=== PATIENT | female | born 1975 | race Caucasian/White ===

== ENCOUNTER 2018-08-06 12:00 | Emergency (ER) | payer OTHER ==
[~2018-08-06] VITALS: Ht 157.5 cm; Wt 52.2 kg
[2018-08-06] MEDS ORDERED: LACTATED RINGERS 1,000 ML IV ONE (12:23)
[2018-08-06] MEDS ORDERED: ONDANSETRON 4 MG/2 ML (SDV) Z0FRAN IV PRN (12:30)
[2018-08-06] MEDS ORDERED: PIPERACILLIN SODIUM/TAZOBACTAM 4.5 GM in NS (IVPB) 100 ML IV ONE (12:30)
[2018-08-06] MEDS ORDERED: fentaNYL INJECTION 100 MCG/2 ML AMP IVP ONE (12:30)
--- NOTE | 2018-08-06 12:30 | ED EENT ---
History of Present Illness General Chief Complaint: Dental Problems/Pain Stated Complaint: TOOTH ABSCESS Source: patient, family (mom) Exam Limitations: no limitations History of Present Illness Date Seen by Provider: Aug 06, 2018 Time Seen by Provider: 12:05 Initial Comments Patient presents to ER by private conveyance with her mother and chief complaint that she's had for the past 5 days some pain and swelling consistent with a tooth abscess over her left upper eye tooth. She's having worsening pain with cold liquids. Air does not bother it. She has a filling in that tooth. She made an appointment with a dentist for the and he put her on amoxicillin for 10 days. She started the amoxicillin yesterday but does not feel that this helped much and today she had some nausea vomiting. She had a temperature yesterday of 99. She has an active brain cancer status post surgery from 2 years ago. She is not on chemotherapy at this time. No radiation therapy. She still having some nausea now. She's having no shortness of breath cough palpitations or chest pain. 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 She's been taking her medications routinely. After she took her amoxicillin and pain pill this morning however she vomited immediately back up. She said when she took a Lortab she got from the walk-in clinic yesterday and it did help marginally with the pain in her face. She's had no discharge from her nose or epistaxis. Allergies and Home Medications Allergies Coded Allergies: No Known Drug Allergies (Unverified , 08/06/18) Patient Home Medication List Home Medication List Reviewed: Yes Review of Systems Review of Systems Constitutional: chills, fever, malaise Eyes: Denies Blindness, Denies Blurred Vision, Denies Drainage Ears: Denies Dizziness, Denies Pain Nose: denies congestion, denies epistaxis Mouth: see HPI, pain, swelling; denies purulent discharge, denies serosanguinous discharge Throat: denies neck stiffness, denies hoarse, denies painful swallowing, denies difficulty with fluids Respiratory: No cough, No short of breath Cardiovascular: No chest pain, No edema Gastrointestinal: No abdominal pain, No constipation, No diarrhea Musculoskeletal: No back pain, No joint pain Past Qbqwjds-Wqlctc-Yzjsom Hx Patient Social History Alcohol Use: Occasionally Uses Recreational Drug Use: No Smoking Status: Never a Smoker Physical Exam Vital Signs Vital Signs - First Documented 08/06/18 12:05 Temp 97.8 Pulse 113 Resp 16 B/P (MAP) 117/88 (98) Pulse Ox 97 O2 Delivery Room Air Height, Weight, BMI Height: '" Weight: lbs. oz. kg; BMI Method: General Appearance: WD/WN, mild distress Eyes: bilateral eye normal inspection, bilateral eye PERRL, bilateral eye EOMI Ears: bilateral ear auricle normal, bilateral ear canal normal, bilateral ear TM normal Nose: normal inspection; No active bleeding, No discharge Mouth/Throat: normal mouth inspection, other (there are some fillings in her eye tooth in question on the left upper maxilla but no swelling of the gingiva, obvious abscess drainage or erythema. Mildly tender to palpation. 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, alert, normal mood/affect, oriented x 3 Progress/Results/Core Measures Results/Orders Lab Results Laboratory Tests Test 08/06/18 12:25 08/06/18 12:52 Range/Units White Blood Count 9.2 4.3-11.0 10^3/uL Red Blood Count 4.28 L 4.35-5.85 10^6/uL Hemoglobin 13.1 11.5-16.0 G/DL Hematocrit 39 35-52 % Mean Corpuscular Volume 92 80-99 FL Mean Corpuscular Hemoglobin 31 25-34 PG Mean Corpuscular Hemoglobin Concent 33 32-36 G/DL Red Cell Distribution Width 13.0 10.0-14.5 % Platelet Count 255 130-400 10^3/uL Mean Platelet Volume 10.9 H 7.4-10.4 FL Neutrophils (%) (Auto) 81 H 42-75 % Lymphocytes (%) (Auto) 10 L 12-44 % Monocytes (%) (Auto) 8 0-12 % Eosinophils (%) (Auto) 1 0-10 % Basophils (%) (Auto) 0 0-10 % Neutrophils # (Auto) 7.5 1.8-7.8 X 10^3 Lymphocytes # (Auto) 0.9 L 1.0-4.0 X 10^3 Monocytes # (Auto) 0.7 0.0-1.0 X 10^3 Eosinophils # (Auto) 0.1 0.0-0.3 10^3/uL Basophils # (Auto) 0.0 0.0-0.1 10^3/uL Prothrombin Time 15.1 H 12.2-14.7 SEC INR Comment 1.2 0.8-1.4 Activated Partial Thromboplast Time 29 24-35 SEC Sodium Level 140 135-145 MMOL/L Potassium Level 3.9 3.6-5.0 MMOL/L Chloride Level 105 98-107 MMOL/L Carbon Dioxide Level 24 21-32 MMOL/L Anion Gap 11 5-14 MMOL/L Blood Urea Nitrogen 12 7-18 MG/DL Creatinine 0.85 0.60-1.30 MG/DL Estimat Glomerular Filtration Rate > 60 BUN/Creatinine Ratio 14 Glucose Level 101 70-105 MG/DL Calcium Level 9.3 8.5-10.1 MG/DL Corrected Calcium 8.5-10.1 MG/DL Total Bilirubin 0.7 0.1-1.0 MG/DL Aspartate Amino Transf (AST/SGOT) 108 H 5-34 U/L Alanine Aminotransferase (ALT/SGPT) 131 H 0-55 U/L Alkaline Phosphatase 67 40-136 U/L Total Protein 7.7 6.4-8.2 GM/DL Albumin 4.6 H 3.2-4.5 GM/DL Serum Test, Qualitative NEGATIVE NEGATIVE Lactic Acid Level 0.80 0.50-2.00 MMOL/L My Orders Orders - AME PARMAR Cbc With Automated Diff (08/06/18 12:23) Comprehensive Metabolic Panel (08/06/18 12:23) Blood Culture (08/06/18 12:23) Protime With Inr (08/06/18 12:23) Partial Thromboplastin Time (08/06/18 12:23) Saline Lock/Iv-Start (08/06/18 12:23) Ondansetron Injection (Zofran Injectio (08/06/18 12:30) Lactic Acid Analyzer (08/06/18 12:23) Lactated Ringers (Lr 1000 Ml Iv Solution (08/06/18 12:23) Piperacillin Sodium/Tazobactam (Zosyn Vi (08/06/18 12:30) Fentanyl Injection (Sublimaze Injection (08/06/18 12:30) Ct Neck (Soft Tissue) W (08/06/18 12:30) Iohexol Injection (Omnipaque 350 Mg/Ml 1 (08/06/18 12:45) Contrast Received (Contrast Received) (08/06/18 12:45) Ns (Ivpb) (Sodium Chloride 0.9% Ivpb Bag (08/06/18 12:45) Hcg,Qualitative Serum (08/06/18 12:58) Medications Given in ED Current Medications Medications Dose Ordered Sig/Michell Route Start Time Stop Time Status Last Admin Dose Admin Fentanyl Citrate 75 mcg ONCE ONCE IVP 08/06/18 12:30 08/06/18 12:31 DC 08/06/18 12:36 75 MCG Iohexol 100 ml ONCE ONCE IV 08/06/18 12:45 08/06/18 13:15 DC 08/06/18 13:00 75 ML Lactated Ringer's 1,000 ml @ 0 mls/hr Q0M ONCE IV 08/06/18 12:23 08/06/18 12:29 DC 08/06/18 12:36 1,000 MLS/HR Ondansetron HCl 4 mg PRN PRN IV 08/06/18 12:30 08/06/18 12:37 DC 08/06/18 12:36 4 MG Piperacillin Sod/ Tazobactam Sod 4.5 gm/Sodium Chloride 100 ml @ 200 mls/hr ONCE ONCE IV 08/06/18 12:30 08/06/18 13:15 DC 08/06/18 13:26 200 MLS/HR Vital Signs/I&O 08/06/18 12:05 Temp 97.8 Pulse 113 Resp 16 B/P (MAP) 117/88 (98) Pulse Ox 97 O2 Delivery Room Air Progress Progress Note : Time: 12:37 Progress Note She is not immunocompromised with chemotherapy. Her facial swelling concerns me for more occult abscess or even possibly sinus infection. Plan to do a CT of the soft tissues of the neck which will include maxillofacial. To 75 g of fentanyl since she's not entirely abisai to opiate pain medicines and 4 mg Zofran for her nausea. She is tachycardic with a heart rate of 120 on arrival but afebrile so we'll just initiate a septic workup with fluids and choose Zosyn to cover anaerobes. If we don't find her to be in sepsis however we can be escalate. If she is thin and probably recommend IV antibiotics and inpatient stay. She has appropriate dental follow-up. Diagnostic Imaging Diagonstic Imaging: CT (with contrast) Plain Films/CT/US/NM/MRI: other (maxillofacial soft tissue neck) Comments [facility], [place] NAME: [facility] REC#: [id number] PT STATUS: REG ER : 1975 PHYSICIAN: AME PARMAR MD ADMIT DATE: 08/06/18/ER Draft Date of Exam:08/06/18 CT NECK (SOFT TISSUE) W PROCEDURE: CT neck soft tissue with contrast. TECHNIQUE: Multiple contiguous axial images were obtained through the neck after the administration of contrast. INDICATION: Left facial pain and swelling. COMPARISON: None. FINDINGS: Inflammatory stranding and enhancement within the soft tissues overlying the left mandible and maxilla. There is a periapical lucency about the left maxillary canine. There is a peripherally enhancing fluid collection consistent with an abscess measuring approximately 1.4 x 0.5 cm directly adjacent to periapical lucency. No cervical lymphadenopathy. This mass is identified in the neck. The thyroid and major salivary glands are unremarkable. The cervical, carotid and vertebral arteries are grossly patent. Normal floor of the mouth, tongue base and epiglottis. No acute findings in the cervical spine. The visualized intracranial contents, skull base, paranasal sinuses and mastoids are negative. IMPRESSION: 1. Periapical lucency and adjacent peripheral enhancing fluid collection consistent with an abscess about the left maxillary canine. There is moderate adjacent inflammatory stranding and enhancement. 2. No other acute CT findings in the neck. Dictated on workstation # [id number] Dict: 08/06/18 1321 Trans: 08/06/18 1340 [facility] [id number] Interpreted by: ALEE DON MD Electronically signed by: Reviewed: Reviewed by Me Departure Impression Primary Impression: Dental abscess Disposition: HOME, SELF-CARE Condition: Improved Departure-Patient Inst. Decision time for Depature: 14:46 Referrals: JEFE STUBBS (PCP) Primary Care Physician Patient Instructions: Tooth Abscess (DC) Add. Discharge Instructions: Continue to take the Augmentin as prescribed. You may also take one capsule of probiotics twice a day to prevent the potential diarrhea associated with all antibiotics. For pain relief you can use 650 mg of Tylenol every 8 hours in addition to 800 mg ibuprofen every 8 hours. You can also put a hot compress or hot water bottle on your cheek for pain relief. If you have breakthrough pain you can use the Percocet 1/2-2 tablets every 6 hours as needed to control your pain. Percocet will cause drowsiness and so you should not operate machinery or drive. Do not mix with alcohol. Percocet will cause constipation and therefore should be taken with at least one dose of MiraLAX daily every day that you use the pain medicine. Keep your follow-up appointment with the dentist. Drink plenty of fluids. Scripts Oxycodone HCl/Acetaminophen (Percocet 10-325 mg Tablet) 1 Each Tablet 1-2 EACH PO Q6H PRN for PAIN-MODERATE MDD 3 for 7 Days, #25 TAB 0 Refills Prov: AME PARMAR 08/06/18 Work/School Note: Work Release Form Date Seen in the Emergency Department: Aug 06, 2018 Return to Work: Aug 07, 2018 Restrictions: No Restrictions AME PARMAR Aug 06, 2018 12:30
[2018-08-06 12:34] LABS: BASOPHILS % (AUTO) 0 % (0-10); EOSINOPHILS # (AUTO) 0.1 10^3/uL (0.0-0.3); EOSINOPHILS % (AUTO) 1 % (0-10); HEMATOCRIT 39 % (35-52); HEMOGLOBIN 13.1 G/DL (11.5-16.0); LYMPHOCYTES # (AUTO) 0.9 X 10^3 (1.0-4.0); LYMPHOCYTES % (AUTO) 10 % (12-44); MEAN CORPUSCULAR HEMOGLOBIN 31 PG (25-34); MEAN CORPUSCULAR HGB CONC 33 G/DL (32-36); MEAN CORPUSCULAR VOLUME 92 FL (80-99); MEAN PLATELET VOLUME 10.9 FL (7.4-10.4); MONOCYTES # (AUTO) 0.7 X 10^3 (0.0-1.0); MONOCYTES % (AUTO) 8 % (0-12); NEUTROPHILS # (AUTO) 7.5 X 10^3 (1.8-7.8); NEUTROPHILS % (AUTO) 81 % (42-75); PLATELET COUNT 255 10^3/uL (130-400); RED BLOOD COUNT 4.28 10^6/uL (4.35-5.85); WHITE BLOOD COUNT 9.2 10^3/uL (4.3-11.0)
[2018-08-06] MEDS ORDERED: NS 100 ML (IVPB) BAG IV ONE (12:45)
[2018-08-06] MEDS ORDERED: RECEIVED CONTRAST (Hold Metformin) IV SCH (12:45)
[2018-08-06] MEDS ORDERED: IOHEXOL 350 MG/ML 100 ML (OMNIPAQUE 350) VIAL IV ONE (12:45)
[2018-08-06 12:57] LABS: INR 1.2 (0.8-1.4); PROTHROMBIN TIME PATIENT 15.1 SEC (12.2-14.7)
[2018-08-06 13:00] LABS: ALANINE AMINOTRANSFERASE 131 U/L (0-55); ALBUMIN 4.6 GM/DL (3.2-4.5); ALKALINE PHOSPHATASE 67 U/L (40-136); BILIRUBIN,TOTAL 0.7 MG/DL (0.1-1.0); BUN/CREATININE RATIO 14; CALCIUM 9.3 MG/DL (8.5-10.1); CARBON DIOXIDE 24 MMOL/L (21-32); CHLORIDE 105 MMOL/L (98-107); CREATININE SERUM 0.85 MG/DL (0.60-1.30); GFR ESTIMATED > 60; GLUCOSE 101 MG/DL (70-105); POTASSIUM 3.9 MMOL/L (3.6-5.0); SODIUM 140 MMOL/L (135-145); TOTAL PROTEIN 7.7 GM/DL (6.4-8.2)
--- NOTE | 2018-08-06 13:40 | Diagnostic Imaging Report ---
PROCEDURE: CT neck soft tissue with contrast. TECHNIQUE: Multiple contiguous axial images were obtained through the neck after the administration of contrast. INDICATION: Left facial pain and swelling. COMPARISON: None. FINDINGS: Inflammatory stranding and enhancement within the soft tissues overlying the left mandible and maxilla. There is a periapical lucency about the left maxillary canine. There is a peripherally enhancing fluid collection consistent with an abscess measuring approximately 1.4 x 0.5 cm directly adjacent to periapical lucency. No cervical lymphadenopathy. This mass is identified in the neck. The thyroid and major salivary glands are unremarkable. The cervical, carotid and vertebral arteries are grossly patent. Normal floor of the mouth, tongue base and epiglottis. No acute findings in the cervical spine. The visualized intracranial contents, skull base, paranasal sinuses and mastoids are negative. IMPRESSION: 1. Periapical lucency and adjacent peripheral enhancing fluid collection consistent with an abscess about the left maxillary canine. There is moderate adjacent inflammatory stranding and enhancement. 2. No other acute CT findings in the neck. Dictated by: Dictated on workstation # [id number]
[2018-08-06] MEDS ORDERED: OXYC1TAB12 PO (14:50)
[2018-08-06] MEDS ORDERED: oxyCODONE/APAP 10/325MG (PERCOCET 10) TABLET PO ONE (15:00)
[2018-08-06 15:10] VITALS: BP 108/67
== END 2018-08-06 15:10 | disposition home or self-care (01) ==
LOC: EDUNIT# 12:00 → ER 12:01
DX: K04.7 Periapical abscess without sinus (principal); C71.9 Malignant neoplasm of brain, unspecified; Z98.890 Other specified postprocedural states
CPT/HCPCS: 36415; 70491; 80053; 83605; 84703; 85025; 85610; 85730; 87040; 96361; 96365; 96375

== ENCOUNTER → 2019-05-12 | Outpatient (CLI) | payer OTHER ==
[~2019-05-12] MED LIST: OXYC1TAB12 PO
--- NOTE | 2019-05-12 11:02 | Diagnostic Imaging Report ---
INDICATION: Right lower quadrant pain. The liver is normal in size at 13.6 cm. No discrete liver mass is identified. The portal vein is patent and shows normal direction of flow. Gallbladder is without stones or sludge. No wall thickening or biliary ductal dilatation is seen. The pancreas is unremarkable. Spleen is normal in size at 5.8 cm. The aorta is nonaneurysmal. The IVC is patent. The right and left kidneys are without evidence of calculi or hydronephrosis. There is no ascites. IMPRESSION: Unremarkable abdominal ultrasound. Dictated by: Dictated on workstation # [id number]
--- NOTE | 2019-05-12 11:06 | Diagnostic Imaging Report ---
PROCEDURE: US Non-ob pelvis comp/trans. TECHNIQUE: Multiple realtime grayscale images were obtained of the pelvis in various projections endovaginally. Transabdominal imaging was also performed. INDICATION: Right lower quadrant pain. The uterus measures 6.8 x 4.8 x 4.2 cm. Endometrium is 14 mm in thickness. No myometrial mass is detected. Right ovary measures 3.2 x 2.7 x 2.1 cm and the left ovary measures 2.3 x 1.8 x 1.8 cm. Right ovary does contain a 19 mm cyst. Left ovary contains a 12 mm cyst. There is blood flow to both ovaries. There is a small amount of free fluid. IMPRESSION: Small bilateral ovarian cysts. The study is otherwise unremarkable. Dictated by: Dictated on workstation # [id number]
== END ==
LOC: RAD 09:09
PROVIDERS: ATTEND Nurse Practitioner
DX: N83.202 Unspecified ovarian cyst, left side (principal); N83.201 Unspecified ovarian cyst, right side
CPT/HCPCS: 76700; 76830; 76856

== ENCOUNTER → 2019-05-16 | Outpatient (CLI) | payer OTHER ==
--- NOTE | 2019-05-16 13:00 | Diagnostic Imaging Report ---
INDICATION: Routine screening. No prior mammograms are available for comparison. This is a baseline mammogram. 2-D and 3-D bilateral screening mammography was performed with a Computer Aided Detection (CAD) system. 3-D tomosynthesis was also performed and reviewed. FINDINGS: Both breasts are heterogeneously dense, limiting the sensitivity of mammography. Scattered benign-appearing calcifications are noted. No mass or malignant appearing microcalcifications are seen. Axillae are unremarkable. IMPRESSION: No mammographic features suspicious for malignancy are identified. ACR BI-RADS Category 2: Benign findings. Result letter will be mailed to the patient. Note: At least 10% of breast cancer is not imaged by mammography. Dictated by: Dictated on workstation # [id number]
== END ==
LOC: RAD 09:58
PROVIDERS: ATTEND Nurse Practitioner
DX: Z12.31 Encounter for screening mammogram for malignant neoplasm of breast (principal); R10.31 Right lower quadrant pain
CPT/HCPCS: 77067

== ENCOUNTER → 2021-05-12 | Outpatient (CLI) | payer OTHER ==
--- NOTE | 2021-05-12 09:46 | Diagnostic Imaging Report ---
INDICATION: Routine screening. COMPARISON is made with prior mammogram from 05/16/2019. 2-D and 3-D bilateral screening mammography was performed CAD. Both breasts are heterogeneously dense, limiting the sensitivity of mammography. There are benign calcifications scattered throughout both breasts. No mass or malignant-appearing microcalcifications are seen. Axillae are unremarkable. IMPRESSION: BI-RADS Category 2. No mammographic features suspicious for malignancy are identified. ACR BI-RADS Category 2: Benign findings. Result letter will be mailed to the patient. Note: At least 10% of breast cancer is not imaged by mammography. Dictated by: Dictated on workstation # [id number]
== END ==
LOC: RAD 07:30
PROVIDERS: ATTEND Nurse Practitioner
DX: Z12.31 Encounter for screening mammogram for malignant neoplasm of breast (principal)
CPT/HCPCS: 77063; 77067

== ENCOUNTER → 2022-06-02 | Outpatient (CLI) | payer OTHER ==
--- NOTE | 2022-06-02 09:09 | Diagnostic Imaging Report ---
Indication: Routine screening. Comparison is made with prior mammograms 05/12/2021 and 05/16/2019. 2-D and 3-D bilateral screening mammography was performed with CAD. Both breasts are heterogeneously dense, limiting the sensitivity of mammography. Scattered benign calcifications are noted bilaterally. No mass or malignant-appearing microcalcifications are seen. Axillae are unremarkable. IMPRESSION: BI-RADS Category 2 No mammographic features suspicious for malignancy are identified. ACR BI-RADS Category 2: Benign findings. Result letter will be mailed to the patient. Note: At least 10% of breast cancer is not imaged by mammography. Dictated by: Dictated on workstation # [id number]
== END ==
LOC: RAD 07:11
PROVIDERS: ATTEND Nurse Practitioner
DX: Z12.31 Encounter for screening mammogram for malignant neoplasm of breast (principal)
CPT/HCPCS: 77063; 77067

== ENCOUNTER → 2023-06-18 | Outpatient (CLI) | payer OTHER ==
--- NOTE | 2023-06-19 15:00 | Diagnostic Imaging Report ---
INDICATION: Routine screening. Comparison is made with prior mammogram 06/02/2022 and 05/12/2021 2-D and 3-D bilateral screening mammography was performed with CAD. The current study was also evaluated with a Computer Aided Detection (CAD) system. Both breasts are heterogeneously dense, limiting the sensitivity of mammography. There are scattered benign consultations. There appears to be a cluster in the lower and inner aspect of the left breast which is new since prior exam. Additional views are recommended. No mass is detected. Axillae are unremarkable. IMPRESSION: BI-RADS 0 Left breast calcifications. Additional views are recommended for further evaluation. Dictated by: Dictated on workstation # [id number]
== END ==
LOC: RAD 09:22
PROVIDERS: ATTEND Nurse Practitioner
DX: Z12.31 Encounter for screening mammogram for malignant neoplasm of breast (principal); R92.1 Mammographic calcification found on diagnostic imaging of breast
CPT/HCPCS: 77063; 77067